=== PATIENT | female | born 1985 | race Two or more races ===

== ENCOUNTER 2021-04-08 07:00 | Emergency (ER) | payer BC, OTHER ==
[2021-04-08 07:08] VITALS: BP 143/93; PULSE 88; TEMP 99.1; BMI 30.9
[2021-04-08] MEDS ORDERED: IBUPROFEN 600 MG TABLET (FP) PO ONE ×2 (07:37→07:43)
== END 2021-04-08 08:11 | disposition home or self-care (01) ==
LOC: FER 07:00
DX: H66.91 Otitis media, unspecified, right ear (principal)
CPT/HCPCS: 99283-25